=== PATIENT | male | born 1975 | race Caucasian/White ===

== ENCOUNTER 2018-04-11 07:27 | Outpatient (RCR) | payer OTHER, SELFPAY ==
--- NOTE | 2018-04-11 15:08 | HP.FCE ---
HP OT Functional Capacity Eval - Task Lift Floor (Occasional 1-33% of Day): 20 lbs Floor (Frequent 34-66% of Day): 10 lbs Floor (Constant 67-100% of Day): Negligible Floor PDL: Light Knee (Occasional 1-33% of Day): 20 lbs Knee (Frequent 34-66% of Day): 10 lbs Knee (Constant 67-100% of Day): Negligible Knee PDL: Light Waist (Occasional 1-33% of Day): 20 lbs Waist (Frequent 34-66% of Day): 10 lbs Waist (Constant 67-100% of Day): Negligible Waist PDL: Light Shoulder (Occasional 1-33% of Day): 20 lbs Shoulder (Frequent 34-66% of Day): 10 lbs Shoulder (Constant 67-100% of Day): Negligible Shoulder PDL: Light Overhead (Occasional 1-33% of Day): 20 lbs Overhead (Frequent 34-66% of Day): 10 lbs Overhead (Constant 67-100% of Day): Negligible Overhead PDL: Light - Work Activity/Posture Bending: Occasional Ability (1-33% of day) Squatting: Occasional Ability (1-33% of day) Kneeling: No Ablility (0% of day) Reaching out: Occasional Ability (1-33% of day) Reaching up: Occasional Ability (1-33% of day) Sitting: Frequent Ability (34-66% of day) Walking: Frequent Ability (34-66% of day) Comments: with breaks as needed Standing: Occasional Ability (1-33% of day) - Reference Duration Sedentary Sedentary Light Light Light Medium Medium Medium Heavy Very Heavy Heavy Occasional (0-33% of day) Frequent (34-66% of day) Constant (67-100% of day) 10 # Negligible Negligible 15 # 8 # Negligible 20 # 10# Negli. 35 # 18 # 7 # 50 # 25 # 10 # 75 # 100 # >100 # 38 # 50 # >50 # 15 # 20 # >20 # - Patient Information Height: 1.85 m Weight:: 247 kg Hand Dominance: L - Medical History Medical History Including Restrictions: No medical restrictions listed thought paperwork sent or by Pt. No weight reistrictions listed by mendoza tat this time. He has not yet completed work conditioning program. Paperwork noted he is already cleared to complete sedentary to light physical demand. - Diagnoses Diagnoses: PMHx: rotator cuff tear (2011 followed by surgery in 2013 and revision in 2017), L shoulder/arm sprain. R knee and leg sprain, TKR (2015), sprain of lumbar region of spine, R degenerative joint disease patellofemoral, biceps tendinopathy with sublux labrum, impingement syndrome of L shoulder, L L superior glenoid lesions , Upper back strain. Completed PT at [facility] PT service from 06/10/17-11/17/17. He missed 6 visits during that time and had been treated by 32 times by Shilpi Diaz PTA as well as MILADYS Izaguirre. PT reccommended further PT at that time. He noted he has not been able to get further therapy approved through . - Symptoms Symptoms: Pt. noted main symptoms is pain and decreased ROM. Notes when raising shoudle rover head feels increased pressure under scapular. - Pain Pain: DID not take daily pain medications prior to appointment for FCE. Pt. reports pain at rest at 8/10. Noted he is in pain all the time in L shoulder. Heart rate at rest 91 bpm and 02 98 %. Heart rate monitored t/o session. Post MMT and ROM 02 101, HR 113 BMP. Noted increased pain across upper back at thoracic spine. - Work History Work History: Adrien has not worked for the last 6 years. He notes that during that tinme he went to vocational rehab and then needed to have second shoulder surgery that occured April (2016). He still holds [employer] and notes that it is up to date at this time. He worked at [employer] since about 1993 holding jobs at various [employer]. - ADLS ADLS: Pt. lives in apartemnt but is currently also helping grandparents in [place] and then [facility] commuting back and forth. Lives in second floor apartment with 21 steps and handrail 1x side to get to second floor, FFSU once inside apartment. Able to complete ADls (I) and noted that shaving head is hard at times and girlfriend can help if needed. No pets, still driving,and completes most grocery shopping uses cane at times. - Physical Examination Physical Examination: Pt., Adrien, arrived for FCE on this date. With paper work provided it did not indicate that he had completed a work hardening program. Further PT would be beenfical as well as work hardening to promote increased fx of L UE. He noted pain consisently at 8/10 pain for all tasks. Further explaination of performance can be see above and below. He has increased pain with all movement of L UE. Based on performance he Light based physicla activity. Due to increased pain and at times mechanics changes it would not be benfical to complete lifitng taks at this time and could further increase risk of reinjruy. ROM: B UE. Shoulder. flexion: R 0-120 degrees, L 5-63 degrees could have potentially gone further but noted increased symptoms of pain through thoracic spine. ext: R 0-28, L -5-20 (30 degrees) some decreased from 40 degrees at last PT appointment. abduction: R 0-122, L 0-103. IR (elbow at 90): R 52, L 0-50 - completed elbow at 90 as increased symptoms of pain with movement. ER (elbow at 90): R 0-41, L 0-35 degrees. BLE is WFL, hip able to assume at least 100 degrees as able to sit in chair and lean forward as well as knees able to get to 90 degrees while sitting. Strength: Post MMT and ROM 02 101, HR nikki from 91 bpm to 113 BMP. This is believes to be from both exertion and some pain. BUE: Deltoid. biceps: triceps: EMoty can: Right Rv Body Mechanic Strength Average: 77.00 Left Rv Body Mechanic Strength Average: 36.00 Right Lateral Pinch Average: 18.66 Left Lateral Pinch Average: 6.00 Right Tripod Pinch Average: 14.33 Left Tripod Pinch Average: 7.00 Comments: Visble shaking on L UE when trying to complete dynamoeter. Appears to be putting good effort. Fine Motor: FMC intact. Completed 9 hole pegbaord to measure FMC and dexterity tasks. Completed R 25.40 s L 28.02 s. Noted movements increased sensation in back. Balance: Notes uses cane at times but no cane present for session and no deficits noted at this time. Notes doctor was supposed to provide brace but has not been provided support brace at this time. No brace on leg for session. - Non Material Handling Activities Bendinx, 8 with breaks due to LB pain, 10x. Fair body mechanics. Increased thoracic flexion, hyperext of B knees. Increased breaks needed during second set with pain in low back. Mechanical changes noted but no change after starting task. HR 113 bpm Squattinx, 10x, shoulder breaks and increased SOB 10x. 02 98, HR 127 BPM; Increase in HR from 113 to 127 this is indicative of both what appears to be increased exertion and related to some pain. Poor body mechanics. Narrow FAYE, increased trunk flexion to promote upright posture, and pain 8/. Completed Kneeling: Pt. attempted but refused due to shoot of pain through knee and into back per Pt. report. Reaching out/up: Reaching otu from standing position: 3x, 10x, 10 x faster need for quick break after 2 reaches on last round of 10 reps. tasks at abou t 80 degrees shoulder flexion rating more accurate at ___/10. Pt. reports 8/10. Appears to have some desprepancies as he is able to completed. 02 98, HR 122 bpm. Reaching up from standing position: Short standing break prior to continuing. 3x, 10x, short break 8/ pain per Pt. report, shoulder flexion about 100 on L UE during task. O2 98, HR 97 bpm Walkin misn short less 30 second standing break at 6 mins. 6 laps in 6 mins plus 55 feet. HR 98. End of walking 96 02, 108 bpm Standin mins with short breaks and moving t/o session. Sittin-45 mins. Could have sat longer. Climbing Stairs: 10 stairs L foot up, R down - Dynamic Occasional Lifting Capacity Floor Lift: 20. 8/10 percieved pain Knee Lift: 20. 8/10 percieved pain Waist Lift: 20. 8/10 percieved pain. 02 78, HR 144 bpm Shoulder Lift: 20 Overhead Lift: 20 lbs. Slight supercharger mechanic chnages of holding breath, compensations,. 02 95 HR 96 Carrying: O2 94, HR 112 bpm. Mechanical changes noted. stright arms, SOB, holding shoulder. Comments: Adrien completed The Oswestry Disability Index (Back) reporting 2250= 44% disability, The Oswestry Disability (Neck) 27/50= 54%, DASH 82. 8/10 percieved pain
--- NOTE | 2018-04-11 15:09 | HP.OTFCE.D ---
FCE D/C Summary - Discharge ES ANDREA was seen for a one time visit for an FCE on 04/11/18 and is discharged.
--- NOTE | 2018-04-13 13:24 | HP.FCE ---
HP OT Functional Capacity Eval - Task Lift Floor (Occasional 1-33% of Day): 20 lbs Floor (Frequent 34-66% of Day): 10 lbs Floor (Constant 67-100% of Day): Negligible Floor PDL: Light Knee (Occasional 1-33% of Day): 20 lbs Knee (Frequent 34-66% of Day): 10 lbs Knee (Constant 67-100% of Day): Negligible Knee PDL: Light Waist (Occasional 1-33% of Day): 20 lbs Waist (Frequent 34-66% of Day): 10 lbs Waist (Constant 67-100% of Day): Negligible Waist PDL: Light Shoulder (Occasional 1-33% of Day): 20 lbs Shoulder (Frequent 34-66% of Day): 10 lbs Shoulder (Constant 67-100% of Day): Negligible Shoulder PDL: Light Overhead (Occasional 1-33% of Day): 20 lbs Overhead (Frequent 34-66% of Day): 10 lbs Overhead (Constant 67-100% of Day): Negligible Overhead PDL: Light Comments: Mechanical changes noted with all lifting tasks. Due to these mechanical changes these tasks were stopped when appropriate and should be avoid at this time until further follow up, strength, and endurance is built up in LUE. Pt. and record he provided indicated last PT visit was 11/17/17. Further PT is needed to increased ability to fx use L UE. And then the potential of work hardening and then vocational rehab if needed. - Work Activity/Posture Bending: Occasional Ability (1-33% of day) Comments: 1-10% Squatting: Occasional Ability (1-33% of day) Comments: 1-10% Kneeling: No Ablility (0% of day) Comments: unable due to safety concerns per Pt. report. Reaching out: Occasional Ability (1-33% of day) Comments: 1-15% Reaching up: Occasional Ability (1-33% of day) Comments: 1-10% Sitting: Frequent Ability (34-66% of day) Walking: Occasional Ability (1-33% of day) Comments: with breaks as needed Standing: Occasional Ability (1-33% of day) Comments: 1-15% - Reference Duration Sedentary Sedentary Light Light Light Medium Medium Medium Heavy Very Heavy Heavy Occasional (0-33% of day) Frequent (34-66% of day) Constant (67-100% of day) 10 # Negligible Negligible 15 # 8 # Negligible 20 # 10# Negli. 35 # 18 # 7 # 50 # 25 # 10 # 75 # 100 # >100 # 38 # 50 # >50 # 15 # 20 # >20 # - Patient Information Height: 1.85 m Weight:: 247 kg Hand Dominance: L - Medical History Medical History Including Restrictions: No medical restrictions listed though paperwork sent with C9 or brought by Pt. No weight reistrictions noted by client at this time. He has not yet completed work conditioning program. Paperwork indicated he is already cleared to complete sedentary to light physical demand activities. Edcuated to completed all tasks as tolerated but to give best effort. - Diagnoses Diagnoses: PMHx: rotator cuff tear (2011 followed by surgery in 2012 and revision in 2016), L shoulder/arm sprain. R knee and leg sprain, TKR (2014), sprain of lumbar region of spine, R degenerative joint disease patellofemoral, biceps tendinopathy with sublux labrum, impingement syndrome of L shoulder, L superior glenoid lesions , Upper back strain. Completed PT at [facility] PT service from 06/10/17-11/17/17. He missed 6 visits during that time and had been treated for a total of 32 times by Shilpi Diaz PTA as well as Cecil Faith LPT. PT recommended further POC at that time. he report he has not recieve approval for C9 for continue PTand has no further treatment. - Symptoms Symptoms: Pt. noted main symptoms are pain, decreased strength, and decreased ROM. Notes when raising shoulder overhead feels increased pressure under scapular. - Pain Pain: DID not take daily pain medications prior to appointment for FCE. Reports taking pain related medications daily to manage shoulder related pain. Pt. reports pain at rest at 8/10. He is able to move R UE against gravity and pain appears to start at 110 degrees shoulder flexion. There is no indication of grimance or wincing while sitting in chair so there maybe some despcrepancies with seated pain. He did use compensatory as well as protective techniques when adjusting self in chair. Noted he is in pain all the time in L shoulder. Heart rate at rest 91 bpm and 02 at 98 %. Heart rate monitored t/o session to determine pain as well as exertion. Post MMT and ROM 02 101, HR 113 BMP. Noted increased pain across upper back at thoracic spine. HR appears to adequetly inidcate increased in pain symtpoms as increased grimances noted t/o various movements to test ROM. - Work History Work History: Adrien has not worked for the last 6 years. He notes that during that time he went to vocational rehab and then needed to have second shoulder surgery that occurred April (2016). He did not return for work hardening post completion of PT or vocational rehab post 2017 surgery. 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 - Behavioral Behavioral: Adrien did not show a lot of emotion but grimace and increased SOB with exertion as well as increased techniques that caused pain were noted t/o session. - ADLS ADLS: Pt. lives in apartment but is currently also helping grandparents in [place] and staying long weekend with grandparents and commuting back and forth while on weekends on apartment. Lives in second floor apartment with 21 steps and handrail 1x side to get to second floor, FFSU once inside apartment. Able to complete ADls (I) and noted that shaving head is hard at times and girlfriend can help if needed. No pets, still driving, and completes most grocery shopping with use cane at times. - Physical Examination Physical Examination: Pt., Adrien, arrived for E on this date. Paperwork provided it did not indicate that he had completed a work hardening program but did indicate one was recommended. Further PT would be beneficial as well as work hardening to promote increased fx of L UE. He noted pain consistently at 8/10 pain for all tasks. Some discrepancies with pain rating at 8/10 while in chair but HR noted t/o physical activities appeared to be consistent with increased pain as well as nonverbals and mechanical changes noted. Further explanation of performance can be see above and below. He has increased pain with all movement of L UE. Based on performance he has been placed in Light based physical activity. Due to increased pain and at times mechanical changes it would not be beneficial to complete lifting tasks or consistent repetitive movement tasks at this time as he is risk of reinjury. It is at this time further PT and work hardening at the completion of PT is recommended. Crepitus is noted with movements of LUE but is likely due to lack of use of L UE. ROM: B UE. Shoulder. flexion: R 0-120 degrees, L 5-63 degrees could have potentially gone further but noted increased symptoms of pain through thoracic spine. ext: R 0-28, L -5-20 (30 degrees) some decreased from 40 degrees at last PT appointment. abduction: R 0-122, L 0-103. IR (elbow at 90): R 52, L 0-50 - completed elbow at 90 as increased symptoms of pain with movement. ER (elbow at 90): R 0-41, L 0-35 degrees. BLE is WFL, hip able to assume at least 100 degrees as able to sit in chair and lean forward as well as knees able to get to 90 degrees while sitting. Strength: Post MMT and ROM 02 101, HR nikki from 91 bpm to 113 BMP. This is believes to be from both exertion and pain as facial grimances noted during tasks. BUE: Deltoid: R 3+/5, L 3+/5 consistently breaks muscle tension but can sustain in againts gravity plane. biceps: R 4-/ 5, L 3+/5. triceps: R 4-/ 5, L 3+/5. suprapinatus: R 4-/ 5, L 3+/5- very painful on L side per Pt. report. wrist flexion and extension: R 4+/5, L 4+/5. BLE. Hip flexors: R 4/5, L 4/5. hamstring: R 4/5, L 4/5. quadracep: R 4/5, L 4/5. plantar flexion: R 4/5, L 4/5. dorsiflexion: R 4/5, L 4/5 Right Expediter Service Order Strength Average: 77.00 Right Expediter Service Order Strength Percentile: 133 Left Expediter Service Order Strength Average: 36.00 Left Expediter Service Order Strength Percentile: 109 Right Lateral Pinch Average: 18.66 Right Lateral Pinch Percentile: 25 Left Lateral Pinch Average: 6.00 Left Lateral Pinch Percentile: below 10th Right Tripod Pinch Average: 14.33 Right Tripod Pinch Percentile: below 10th Left Tripod Pinch Average: 7.00 Left Tripod Pinch Percentile: below 10th Comments: Visible shaking on L UE when trying to complete dynaometer. Appeared to be putting good effort. Sensation: Completed sensation testing through monofilament test. Sensation inact and WFL. Notes increased sensation through shoulder area. Fine Motor: FMC intact. Completed 9 hole pegbaord to measure FMC and dexterity tasks. Completed R 25.40 s (10th) L 28.02 s (10th). Noted movements caused increased sensation in back. Balance: Notes uses cane at times but no cane present for session and no deficits noted with balance during session. Mechanical compensations noted of increased trunk flexion and walking stright knees t/o walking task. Notes doctor was supposed to provide brace for R knee but has not been provided support brace. No brace on leg for session. Completed functional reach test with L arm against wall for AAROM he averaged 9 point score over three trials. Due to score under 10 this indicates greater fall risk. - Non Material Handling Activities Bendinx, 8 with breaks due to LB pain, 10x. Fair body mechanics. Increased thoracic flexion, hypertext of B knees. Increased breaks needed during second set with pain in low back. Mechanical changes noted but no change after starting task. HR nikki from 91 bpm at rest to HR 113 bpm. This is believed to be both due to exertion and pain. No recommended to be completing consistently as increased pain and mechanical changes in body mechanics. Squattinx, 10x, needed standing breaks and increased SOB noted, 10x. 02 98, HR 127 BPM; Increase in HR from 113 to 127 this is indicative of both what appears to be increased exertion and related to some pain. mechanical changes noted and poor body mechanics of narrow FAYE, use of external support of desk, and increased lateral leaning to L side to prevent increased pressure of R LE. Would not recommend completing consistently at this time. Further rehab and then work hardening program would be recommended. Poor body mechanics. Narrow FAYE, increased trunk flexion to promote upright posture, and pain /10. Kneeling: Pt. attempted but refused due to shoot of pain through knee and into back per Pt. report. Visible mechanical changes and inability to assume position. Not recommended to be completing at this time. Reaching out/up: Reaching out from standing position: 3x, 10x, 10 x faster need for quick break after 2 reaches on last round of 10 reps. tasks at about 80 degrees shoulder flexion rating more accurate at 6/10 based on ability to complete task but inability to complete without very limiting pain. Pt. reports 8/10. Would not recommend completing until further rehab is provided. 02 98, HR 122 bpm. Reaching up from standing position: Short standing break prior to continuing. 3x, 10x, short break 8/10 pain per Pt. report, shoulder flexion about 100 on L UE during task. O2 98, HR 97 bpm. Heartrate manageable compared to previous task. Unable to assume same positioning of L arm. Some increased facial expressions noted. Minimal mechanical changes. Needs further rehab before completing regularly for job-based purposes at this time. Walking: Completed 15 mins walk around facility. One less than 30 second standing break at 6 mins. Completed 6 laps in 15 mins. Each lap 340 feet completing approximately 2,040 feet total in walk with additional walking to get to and from main gym. At start HR 98; End of walking 96 02, 108 bpm. Increased heart rate is believed to be both exertion as well as pain and antalgic gait noted at about lap4 of task. Would not be appropriate to return to job requiring repetitive walking tasks. Standing: Pt. completed 30 mins of standing both dynamic and static with short breaks and moving t/o session. Needed to make compensations as needed. Due to h/o of TKR and reports of buckling would not recommended consistent standing at this time due to risk of injury and safety concerns. Sitting: Completed 40-45 mins. Could have sat longer .Lateral leaning to R side. Weight shifts as needed to manage pain. . Climbing Stairs: Completed climbing of 10 stairs L foot up, R down and use of 1x handrail. 1x Lob with decent with ability to self-correct and support of handrail. Climbs 21 steps to apartment, no elevator in building. - Dynamic Occasional Lifting Capacity Floor Lift: 20 lbs. Completed floor lift with poor body mechanics. Pt. perceived 8/10 pain, consistent t/o session. Completed narrow FAYE, flexed thoracic flexion, cervical extension, and lifting with straight arms with cues to bend elbows. Performance classifies in light category of work. Due to mechanical changes and mechanics would no recommend completing lifting related tasks at this time. Further PT recommended and then further work hardening program recommended. Knee Lift: 20 lbs. Completed knee lift with poor body mechanics. Pt. perceived 8/10 pain, consistent t/o session. Completed narrow FAYE, flexed thoracic flexion, cervical extension, and lifting with straight arms with cues to bend elbows. Completed floor lift with poor body mechanics. Pt. perceived 8/10 pain, consistent t/o session. Completed narrow FAYE, flexed thoracic flexion, cervical extension, and lifting with straight arms with cues to bend elbows. Waist Lift: 20 lbs. Completed waist lift with decreased body mechanics. Increased grimace noted and SOB. Perceived pain at 8/. Completed 02 78, HR 144 bpm. Increased HR indicated increased exertion as well as pain. Performance classifies in light category of work. Due to mechanical changes and mechanics would no recommend completing lifting related tasks at this time. Further PT recommended and then further work hardening program recommended. Shoulder Lift: 20 lbs. Increased compensations noted. Fair body mechanics of increased thoracic extension and cervical flexion. Conpensated with primarily using R UE over B Ue. Not reccommended completing at this time due to safety concerns and further risk of reinjury. Further PT reccommended. Overhead Lift: 20 lbs. Mechanical changes of holding breath, compensations, perceived pain at 04/07. 02 95 HR 96. Pain appears tolerated. Performance classifies in light category of work. Due to mechanical changes and mechanics would no recommend completing lifting related tasks at this time. Further PT recommended and then further work hardening program recommended. He appears to be able to tolerate overhead lifting better than forward based tasks. Make be indicative of further impingement type of syndrome. Multiple surgeries noted by patient. Therapist unable to see post-operative reports. Further PT needed to promote pain management and increased fx use of L UE. Carryin lbs. Significant mechanical. Unsafe to complete task. Poor body mechanics of straight arm, elevated shoulders, one handed technique use of primary R UE, and increased ROM. O2 94, HR 112 bpm. Would not recommend completing performance at light work as unsafe and increased compensations noted. Comments: Adrien completed The Oswestry Disability Index (Back) reporting 22/50= 44% disability, The Oswestry Disability (Neck) 27/50= 54%, DASH score of 82. Perceived pain t/o session at 810. Due to ability to complete tasks, but limiting pain noted, it would be more feasible pain at 6-03/07. Adrien would benefit from further PT and potentially work hardening program with the potential of follow up of vocational rehab as previously sounds like Adrien was unable to complete vocational rehab program as per Pt. report and needing additional surgery.
--- NOTE | 2018-04-20 15:16 | HP.OTFCE_ITS ---
HP OT Functional Capacity Eval - Task Lift Floor (Occasional 1-33% of Day): 20 lbs Floor (Frequent 34-66% of Day): 10 lbs Floor (Constant 67-100% of Day): Negligible Floor PDL: Light Knee (Occasional 1-33% of Day): 20 lbs Knee (Frequent 34-66% of Day): 10 lbs Knee (Constant 67-100% of Day): Negligible Knee PDL: Light Waist (Occasional 1-33% of Day): 20 lbs Waist (Frequent 34-66% of Day): 10 lbs Waist (Constant 67-100% of Day): Negligible Waist PDL: Light Shoulder (Occasional 1-33% of Day): 20 lbs Shoulder (Frequent 34-66% of Day): 10 lbs Shoulder (Constant 67-100% of Day): Negligible Shoulder PDL: Light Overhead (Occasional 1-33% of Day): 20 lbs Overhead (Frequent 34-66% of Day): 10 lbs Overhead (Constant 67-100% of Day): Negligible Overhead PDL: Light Comments: Mechanical changes noted with all lifting tasks. Due to these mechanical changes these tasks were stopped if/when appropriate and should be avoided at this time until further follow up, strength, and endurance is built up in LUE. Pt. and record he provided indicated last PT visit was 11/17/17. Further PT is needed to increase ability to fx use L UE. And then the potential of work hardening and then vocational rehab if needed. Please see below for further performance on FCE. - Work Activity/Posture Bending: Occasional Ability (1-33% of day) Comments: 1-10% Squatting: Occasional Ability (1-33% of day) Comments: 1-10% Kneeling: No Ablility (0% of day) Comments: unable due to safety concerns per Pt. report. Reaching out: Occasional Ability (1-33% of day) Comments: 1-15% Reaching up: Occasional Ability (1-33% of day) Comments: 1-10% Sitting: Frequent Ability (34-66% of day) Walking: Occasional Ability (1-33% of day) Comments: with breaks as needed Standing: Occasional Ability (1-33% of day) Comments: 1-15% - Reference Duration Sedentary Sedentary Light Light Light Medium Medium Medium Heavy Very Heavy Heavy Occasional (0-33% of day) Frequent (34-66% of day) Constant (67-100% of day) 10 # Negligible Negligible 15 # 8 # Negligible 20 # 10# Negli. 35 # 18 # 7 # 50 # 25 # 10 # 75 # 100 # >100 # 38 # 50 # >50 # 15 # 20 # >20 # - Patient Information Height: 1.85 m Weight:: 247 kg Hand Dominance: L - Medical History Medical History Including Restrictions: No medical restrictions listed though paperwork sent with C9 or brought by Pt. No weight restrictions listed by client at this time. He has not yet completed work conditioning program. Paperwork indicated he is already cleared to complete sedentary to light physical demand. - Diagnoses Diagnoses: PMHx: rotator cuff tear (2011 followed by surgery in 2012 and revision in 2016), L shoulder/arm sprain. R knee and leg sprain, TKR (2014), L ATC tear, sprain of lumbar region of spine, R degenerative joint disease patellofemoral, biceps tendinopathy with sublux labrum, impingement syndrome of L shoulder, L superior glenoid lesions, Upper back strain. Completed PT at [facility] PT service from 06/10/17-11/17/17. He missed 6 visits during that time and had been treated for a total of 32 times by Shilpi Diaz PTA as well as Cecil Faith LPT. PT recommended further POC at that time. He reports he has not received approval for for continue PT and has no further treatment. - Symptoms Symptoms: Pt. noted main symptoms are pain, decreased strength, and decreased ROM. Notes when raising shoulder overhead feels increased pressure under scapular. - Pain Pain: DID not take daily pain medications prior to appointment for FCE. Reports taking pain related medications daily to manage shoulder related pain. Pt. reports pain at rest at 8/10. He is able to move R UE against gravity and pain appears to start at 110 degrees shoulder flexion. There is no indication of grimace or wincing while sitting in chair so there may be some discrepancies with seated pain. He did use compensatory as well as protective techniques when adjusting self in chair. Noted he is in pain all the time in L shoulder. Heart rate at rest 91 bpm and 02 at 98 %. Heart rate monitored t/o session to determine pain as well as exertion. Post MMT and ROM 02 101, HR 113 BMP. Noted increased pain across upper back at thoracic spine. HR appears to adequately indicate increased in pain symptoms as increased grimaces noted t/o various movements to test ROM. - Work History Work History: Adrien has not worked for the last 6 years. He notes that during that time he went to vocational rehab and then needed to have second shoulder surgery that occurred April (2016). 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 - Behavioral Behavioral: Adrien did not show a lot of emotion but grimaces at times and increased SOB were noted with increased exertion. Tasks that caused increased pain were noted t/o session and discontinued when appropriate or safety was concerned. - ADLS ADLS: Pt. lives in apartment but is currently also helping grandparents in [place] and staying long weekend with grandparents and commuting back and forth while on weekends on apartment. Lives in second floor apartment with 21 steps and handrail 1x side to get to second floor, FFSU once inside apartment. Able to complete ADls (I) and noted that shaving head is hard at times and girlfriend can help if needed. No pets, still driving, and completes most grocery shopping with use cane at times. As per E questionnaire he does exercises regularly, cannot complete yardwork or sit through movie, but can walk steps, complete laundry, grocery shop and completed all ADLS. - Physical Examination Physical Examination: Pt., Adrien, arrived for [facility] on this date. Paperwork provided did not indicate that he had completed a work hardening program but did indicate one was recommended. Pt. noted was in vocational rehab and then needed to stop due to needing second surgery. Further PT would be beneficial as well as work hardening to promote increased fx of L UE. He noted pain consistently at 8/10 pain for all tasks. Some discrepancies with pain rating at 8/10 while in chair but HR monitored t/o physical activities appeared to be consistent with increased pain as well as exertion but nonverbals and mechanical changes noted. Further explanation of performance can be see above and below. He has increased pain with all movement of L UE. Based on performance he has been placed in Light based physical activity. Due to increased pain and at times mechanical changes it would not be beneficial to complete lifting tasks or consistent repetitive movement tasks at this time as he is risk of reinjury. It is at this time further PT and work hardening at the completion of PT is recommended. Crepitus is noted with movements of LUE but is likely due to lack of use of L UE. ROM: B UE. Shoulder. flexion: R 0-120 degrees, L 5-63 degrees could have potentially gone further but noted increased symptoms of pain through thoracic spine. - increased signs of impingement of R shoulder. Can be treated through continued PT. ext: R 0-28, L -5-20 (30 degrees) some decreased from 40 degrees at last PT appointment. abduction: R 0-122, L 0-103. IR (elbow at 90): R 52, L 0-50 - completed elbow at 90 as increased symptoms of pain with movement. ER (elbow at 90): R 0-41, L 0-35 degrees. BLE is WFL, hip able to assume at least 100 degrees as able to sit in chair and lean forward as well as knees able to get to 90 degrees while sitting. Strength: Post MMT and ROM 02 101, HR nikki from 91 bpm to 113 BMP. This is believed to be from both exertion and pain as facial grimaces noted during tasks. BUE: Deltoid: R 3+/5, L 3+/5 consistently breaks muscle tension but can sustain position in against gravity plane. biceps: R 4-/ 5, L 3+/5. triceps: R 4-/ 5, L 3+/5. supraspinatus: R 4-/ 5, L 3+/5- very painful on L side per Pt. report. wrist flexion and extension: R 4+/5, L 4+/5. BLE. Hip flexors: R 4/5, L 4/5. hamstring: R 4/5, L 4/5. quadricep: R 4/5, L 4/5. plantar flexion: R 4/5, L 4/5. dorsiflexion: R 4/5, L 4/5 Right Cloth Printing Utility Worker Strength Average: 77.00 Right Cloth Printing Utility Worker Strength Percentile: 133 Left Cloth Printing Utility Worker Strength Average: 36.00 Left Cloth Printing Utility Worker Strength Percentile: 109 Right Lateral Pinch Average: 18.66 Right Lateral Pinch Percentile: 25 Left Lateral Pinch Average: 6.00 Left Lateral Pinch Percentile: below 10th Right Tripod Pinch Average: 14.33 Right Tripod Pinch Percentile: below 10th Left Tripod Pinch Average: 7.00 Left Tripod Pinch Percentile: below 10th Comments: Visible shaking on L UE when trying to complete dynamometer. Appeared to be putting good effort. Sensation: Completed sensation testing through monofilament test. Sensation intact and WFL. Notes increased sensation through shoulder area. Fine Motor: FMC intact. Completed 9 hole pegboard to measure FMC and dexterity tasks. Completed R 25.40 s (10th) L 28.02 s (10th). Noted movements caused increased sensation in back. Balance: Notes uses cane at times but no cane present for session. Mechanical compensations noted of increased trunk flexion and walking straight knees t/o walking task. Notes doctor was supposed to provide brace for R knee but has not been provided support brace. No brace on leg for session. Completed functional reach test with L arm against wall for AAROM he averaged 9-point score over three trials. Due to score under 10 this indicates greater fall risk. Completed fx reach as due to pain in LUE he exhibits increased risk of falling when reaching. Further balance testing maybe beneficial but was not able to be completed during session due to time constraints. - Non Material Handling Activities Bendinx, 8 with breaks due to LB pain, 10x. Fair body mechanics. Increased thoracic flexion, hyperext of B knees due to no bending of knee with movement and increased compensations. Increased breaks needed during second set with pain in low back. Mechanical changes noted but no change after starting task. HR nikki from 91 bpm at rest to HR 113 bpm, vitals WFL due to increased activity level compared to sitting. Not recommended to be completing consistently as increased pain and mechanical changes in body mechanics. Squattinx, 10x, needed standing breaks and increased SOB noted, 10x. 02 98 , HR 127 BPM; Increase in HR from 113 to 127 this is indicative of both what appears to be increased exertion as well as related to pain. mechanical changes noted and poor body mechanics of narrow FAYE, use of external support of desk, and increased lateral leaning to L side to prevent increased pressure of R LE. Would not recommend completing consistently at this time. Further rehab and then work hardening program would be recommended. Pain rated at 8/10, but able to complete movement which pain more likely 6-7/10. Pain still significant but likely at 8/10 would not be able to complete movement at all. Kneeling: Pt. attempted but refused due to shoot of pain through knee and into back per Pt. report. Visible mechanical changes and inability to assume position. Not reccommended to be completing at this time. Pain rated at 8+/10 and pain rating appears to accurate at this time. Reaching out/up: Reaching out from standing position: 3x, 10x, 10 x faster need for quick break after 2 reaches on last round of 10 reps. Tasks for reaching out at about 80 degrees shoulder flexion rating more accurate at 6-7/ 10 based on ability to complete task, not in full ROM, but inability to complete without very limiting pain. Pt. reports 8/10. Would not recommend completing until further rehab is provided. Vitals: 02 98, HR 122 bpm. Increased HR appears to indicate pain. Reaching up from standing position: Short standing break prior to continuing. 3x, 10x, short break 8/10 pain per Pt. report, shoulder flexion about 100 on L UE during task. O2 98, HR 97 bpm. Heartrate manageable compared to previous task. Appears impingement syndrome of L shoulder is still limiting movements of L Ue. Unable to assume same positioning of L arm. Some increased facial expressions noted. Minimal mechanical changes. Needs further rehab before completing regularly for job- based purposes at this time. Walking: Completed 15 mins walk around facility. Required 1x less than 30 second standing break at 6 mins garth. Completed 6 laps in 15 mins. Each lap 340 feet completing approximately 2,040 feet total in walk with additional walking to get to and from main gym area. No cane, no a/d used. At start of walk vitals were HR 98, End of walk vitals were: 02 96, 108 bpm. Increased heartrate is believed to be both exertion as well as pain as antalgic gait noted at about lap 4 of task. Would not be appropriate to return to job requiring repetitive walking tasks but is able to complete short walks with breaks. Standing: Pt. completed 30 mins of standing both dynamic and static with short breaks and moving t/o session. Needed to make compensations as needed. Due to h/ o of TKR and reports of buckling would not recommend consistent standing at this time due to risk of reinjury and safety concerns. He tolerated standing with compensations of weight shift as needed. Sitting: Completed 40-45 mins. Could have sat longer. Lateral leaning to R side. Weight shifts as needed to manage pain. Climbing Stairs: Completed climbing of 10 stairs L foot up, R down and use of 1x handrail. 1x LOb with decent with ability to self correct and support of handrail. Climbs 21 steps to apartment, no elevator in building.WFL, noted R knee does bukle but did not buckle during today's evaluation. - Dynamic Occasional Lifting Capacity Floor Lift: 20 lbs. Completed floor lift with poor body mechanics. Pt. perceived 8/10 pain, consistent t/o session. Completed narrow FAYE, flexed thoracic flexion, cervical extension, and lifting with straight arms with cues to bend elbows. Performance classifies in light category of work. Due to mechanical changes and mechanics would no recommend completing lifting related tasks at this time. Further PT recommended and then further work hardening program recommended. Knee Lift: 20 lbs. Completed knee lift with poor body mechanics. Completed narrow FAYE, flexed thoracic flexion, cervical extension, and lifting with straight arms with cues to bend elbows. Completed floor lift with poor body mechanics. Pt. perceived 8/10 pain, consistent t/o session, but able to complete task with more accurate rating being 6-7/10. Completed narrow FAYE, flexed thoracic flexion, cervical extension, and lifting with straight arms with cues to bend elbows. Performance classifies in light category of work. Due to mechanical changes and mechanics would not recommend completing lifting related tasks at this time. Further PT recommended and then further work hardening program recommended. Waist Lift: 20 lbs. Completed waist lift with decreased body mechanics. Increased grimace noted and SOB. Perceived pain at 8/10. Completed 02 78, HR 144 bpm. Increased HR indicated increased exertion as well as pain. Performance classifies in light category of work. Due to mechanical changes and poor body mechanics would not recommend completing lifting related tasks at this time. Further PT recommended and then further work hardening program would be beneficial. Shoulder Lift: 20 lbs. Completed with fair body mechanics. Completed increased thoracic extension cervical flexion with decreased spinal alignment. Increased mechanical changes noted as well as SOB and grimace noted. Pain per Pt. rating at 810. Performance classifies in light category of work. Due to mechanical changes and mechanics would not recommend completing lifting related tasks at this time. Further PT recommended and then further work hardening program recommended. Overhead Lift: 20 lbs. Mechanical changes of holding breath, compensations of decreased spinal alignment, and perceived pain at 8. 02 95 HR 96. Pain appears tolerable during task or would have been discontinued. Performance classifies in light category of work. Due to mechanical changes and mechanics would no recommend completing lifting related tasks at this time. Further PT recommended and then further work hardening program recommended. He appears to be able to tolerate overhead lifting better than forward based tasks. May be indicative of further impingement type of syndrome. Multiple surgeries noted by patient. Therapist unable to see post-operative reports. Further PT needed to promote pain management and increased fx use of L UE. With further therapy he is likely to have increased fx of arm. Impingement syndrome is manageable through conservative treatment. Carryin lbs. Significant mechanical changes. Unsafe to complete task. Poor body mechanics of straight arm, elevated shoulders, one handed technique of primarily using R UE only, and increased ROM. O2 94, HR 112 bpm. Would not recommend completing performance at light work as unsafe and increased compensations noted. 20 lbs. Further Pt needed to help manage impingement/ shoulder pain. It is believed that due to extensive history of shoulder related injury and surgeries he would need continue PT and eventually work hardening. No job description provided. Unclear of weight related lifting requirements. Comments: Adrien completed The Oswestry Disability Index (Back) reporting 22/50= 44% disability, The Oswestry Disability (Neck) 27/50= 54%, DASH score of 82. Perceived pain t/o session at 04/07. Due to ability to complete tasks, but limiting pain noted, it would be more feasible pain at 6-03/07. This is still significant pain and needs addressed with further PT and potentially work hardening program with the potential of follow up of vocational rehab as previously Pt. noted he partially complete as he needed additional surgery. 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 Further clarification of CDL status as well as [id number] requirement for job would be needed. 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
--- NOTE | 2018-04-24 15:51 | HP.FCE ---
HP OT Functional Capacity Eval - Task Lift Floor (Occasional 1-33% of Day): 20 lbs Floor (Frequent 34-66% of Day): 10 lbs Floor (Constant 67-100% of Day): Negligible Floor PDL: Light Knee (Occasional 1-33% of Day): 20 lbs Knee (Frequent 34-66% of Day): 10 lbs Knee (Constant 67-100% of Day): Negligible Knee PDL: Light Waist (Occasional 1-33% of Day): 20 lbs Waist (Frequent 34-66% of Day): 10 lbs Waist (Constant 67-100% of Day): Negligible Waist PDL: Light Shoulder (Occasional 1-33% of Day): 20 lbs Shoulder (Frequent 34-66% of Day): 10 lbs Shoulder (Constant 67-100% of Day): Negligible Shoulder PDL: Light Overhead (Occasional 1-33% of Day): 20 lbs Overhead (Frequent 34-66% of Day): 10 lbs Overhead (Constant 67-100% of Day): Negligible Overhead PDL: Light Comments: Mechanical changes noted with all lifting tasks. Due to these mechanical changes these tasks were stopped if/when appropriate and should be avoided at this time until further follow up, strength, and endurance is built up in LUE. Pt. and record he provided indicated last PT visit was 11/17/17. Further PT is needed to increase ability to fx use L UE. And then the potential of work hardening and then vocational rehab if needed. Please see below for further performance on FCE. - Work Activity/Posture Bending: Occasional Ability (1-33% of day) Comments: 1-10% Squatting: Occasional Ability (1-33% of day) Comments: 1-10% Kneeling: No Ablility (0% of day) Comments: unable due to safety concerns per Pt. report. Reaching out: Occasional Ability (1-33% of day) Comments: 1-15% Reaching up: Occasional Ability (1-33% of day) Comments: 1-10% Sitting: Frequent Ability (34-66% of day) Walking: Occasional Ability (1-33% of day) Comments: with breaks as needed Standing: Occasional Ability (1-33% of day) Comments: 1-15% - Reference Duration Sedentary Sedentary Light Light Light Medium Medium Medium Heavy Very Heavy Heavy Occasional (0-33% of day) Frequent (34-66% of day) Constant (67-100% of day) 10 # Negligible Negligible 15 # 8 # Negligible 20 # 10# Negli. 35 # 18 # 7 # 50 # 25 # 10 # 75 # 100 # >100 # 38 # 50 # >50 # 15 # 20 # >20 # - Patient Information Height: 1.85 m Weight:: 247 kg Hand Dominance: L - Medical History Medical History Including Restrictions: No medical restrictions listed though paperwork sent with C9 or brought by Pt. No weight restrictions listed by client at this time. He has not yet completed work conditioning program. Paperwork indicated he is already cleared to complete sedentary to light physical demand. - Diagnoses Diagnoses: PMHx: rotator cuff tear (2011 followed by surgery in 2012 and revision in 2016), L shoulder/arm sprain. R knee and leg sprain, TKR (2014), L ATC tear, sprain of lumbar region of spine, R degenerative joint disease patellofemoral, biceps tendinopathy with sublux labrum, impingement syndrome of L shoulder, L superior glenoid lesions, Upper back strain. Completed PT at [facility] PT service from 06/10/17-11/17/17. He missed 6 visits during that time and had been treated for a total of 32 times by Shilpi Diaz PTA as well as Cecil Faith LPT. PT recommended further POC at that time. He reports he has not received approval for for continue PT and has no further treatment. - Symptoms Symptoms: Pt. noted main symptoms are pain, decreased strength, and decreased ROM. Notes when raising shoulder overhead feels increased pressure under scapular. - Pain Pain: DID not take daily pain medications prior to appointment for FCE. Reports taking pain related medications daily to manage shoulder related pain. Pt. reports pain at rest at 8/10. He is able to move R UE against gravity and pain appears to start at 110 degrees shoulder flexion. There is no indication of grimace or wincing while sitting in chair so there may be some discrepancies with seated pain. He did use compensatory as well as protective techniques when adjusting self in chair. Noted he is in pain all the time in L shoulder. Heart rate at rest 91 bpm and 02 at 98 %. Heart rate monitored t/o session to determine pain as well as exertion. Post MMT and ROM 02 101, HR 113 BMP. Noted increased pain across upper back at thoracic spine. HR appears to adequately indicate increased in pain symptoms as increased grimaces noted t/o various movements to test ROM. - Work History Work History: Adrien has not worked for the last 6 years. He notes that during that time he went to vocational rehab and then needed to have second shoulder surgery that occurred April (2016). 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 - Behavioral Behavioral: Adrien did not show a lot of emotion but grimaces at times and increased SOB were noted with increased exertion. Tasks that caused increased pain were noted t/o session and discontinued when appropriate or safety was concerned. - ADLS ADLS: Pt. lives in apartment but is currently also helping grandparents in [place] and staying long weekend with grandparents and commuting back and forth while on weekends on apartment. Lives in second floor apartment with 21 steps and handrail 1x side to get to second floor, FFSU once inside apartment. Able to complete ADls (I) and noted that shaving head is hard at times and girlfriend can help if needed. No pets, still driving, and completes most grocery shopping with use cane at times. As per E questionnaire he does exercises regularly, cannot complete yardwork or sit through movie, but can walk steps, complete laundry, grocery shop and completed all ADLS. - Physical Examination Physical Examination: Pt., Adrien, arrived for E on this date, 04/11/18. Paperwork provided did not indicate that he had completed a work hardening program but did indicate one was recommended. he has not worked for about last 6 years per Pt. report. Pt. noted he was in vocational rehab and then needed to stop due to needing second surgery. Further PT would be beneficial as well as work hardening to promote increased fx of L UE. He noted pain consistently at 8/10 pain for all tasks. Some discrepancies with pain rating at 8/10 while in chair but HR monitored t/o physical activities appeared to be consistent with increased pain as well as exertion but nonverbals and mechanical changes noted. Further explanation of performance can be see above and below. He has increased pain with all movement of L UE. Based on performance he has been placed in Light based physical activity. Due to increased pain and at times mechanical changes it would not be beneficial to complete lifting tasks or consistent repetitive movement tasks at this time as he is risk of reinjury. It is at this time further PT and work hardening at the completion of PT is recommended. Crepitus is noted with movements of LUE but is likely due to lack of use of L UE. ROM: B UE. Shoulder. flexion: R 0-120 degrees, L 5-63 degrees could have potentially gone further but noted increased symptoms of pain through thoracic spine. - increased signs of impingement of R shoulder. Can be treated through continued PT. ext: R 0-28, L -5-20 (30 degrees) some decreased from 40 degrees at last PT appointment. abduction: R 0-122, L 0-103. IR (elbow at 90): R 52, L 0-50 - completed elbow at 90 as increased symptoms of pain with movement. ER (elbow at 90): R 0-41, L 0-35 degrees. BLE is WFL, hip able to assume at least 100 degrees as able to sit in chair and lean forward as well as knees able to get to 90 degrees while sitting. Strength: Post MMT and ROM 02 101, HR nikki from 91 bpm to 113 BMP. This is believed to be from both exertion and pain as facial grimaces noted during tasks. BUE: Deltoid: R 3+/5, L 3+/5 consistently breaks muscle tension but can sustain position in against gravity plane. biceps: R 4-/ 5, L 3+/5. triceps: R 4-/ 5, L 3+/5. supraspinatus: R 4-/ 5, L 3+/5- very painful on L side per Pt. report. wrist flexion and extension: R 4+/5, L 4+/5. BLE. Hip flexors: R 4/5, L 4/5. hamstring: R 4/5, L 4/5. quadricep: R 4/5, L 4/5. plantar flexion: R 4/5, L 4/5. dorsiflexion: R 4/5, L 4/5 Right Ceramic Tile Installation Helper Strength Average: 77.00 Right Ceramic Tile Installation Helper Strength Percentile: 133 Left Ceramic Tile Installation Helper Strength Average: 36.00 Left Ceramic Tile Installation Helper Strength Percentile: 109 Right Lateral Pinch Average: 18.66 Right Lateral Pinch Percentile: 25 Left Lateral Pinch Average: 6.00 Left Lateral Pinch Percentile: below 10th Right Tripod Pinch Average: 14.33 Right Tripod Pinch Percentile: below 10th Left Tripod Pinch Average: 7.00 Left Tripod Pinch Percentile: below 10th Comments: Visible shaking on L UE when trying to complete dynamometer. Appeared to be putting good effort. Sensation: Completed sensation testing through monofilament test. Sensation intact and WFL. Notes increased sensation through shoulder area. Fine Motor: FMC intact. Completed 9 hole pegboard to measure FMC and dexterity tasks. Completed R 25.40 s (10th) L 28.02 s (10th). Noted movements caused increased sensation in back. Balance: Notes uses cane at times but no cane present for session. Mechanical compensations noted of increased trunk flexion and walking straight knees t/o walking task. Notes doctor was supposed to provide brace for R knee but has not been provided support brace. No brace on leg for session. Completed functional reach test with L arm against wall for AAROM he averaged 9-point score over three trials. Due to score under 10 this indicates greater fall risk. Completed fx reach as due to pain in LUE he exhibits increased risk of falling when reaching. Further balance testing maybe beneficial but was not able to be completed during session due to time constraints. - Non Material Handling Activities Bendinx, 8 with breaks due to LB pain, 10x. Fair body mechanics. Increased thoracic flexion, hyperext of B knees due to no bending of knee with movement and increased compensations. Increased breaks needed during second set with pain in low back. Mechanical changes noted but no change after starting task. HR nikki from 91 bpm at rest to HR 113 bpm, vitals WFL due to increased activity level compared to sitting. Not recommended to be completing consistently as increased pain and mechanical changes in body mechanics. Squattinx, 10x, needed standing breaks and increased SOB noted, 10x. 02 98, HR 127 BPM; Increase in HR from 113 to 127 this is indicative of both what appears to be increased exertion as well as related to pain. mechanical changes noted and poor body mechanics of narrow FAYE, use of external support of desk, and increased lateral leaning to L side to prevent increased pressure of R LE. Would not recommend completing consistently at this time. Further rehab and then work hardening program would be recommended. Pain rated at 8/10, but able to complete movement which pain more likely 6-7/10. Pain still significant but likely at 8/10 would not be able to complete movement at all. Kneeling: Pt. attempted but refused due to shoot of pain through knee and into back per Pt. report. Visible mechanical changes and inability to assume position. Not reccommended to be completing at this time. Pain rated at 8+/10 and pain rating appears to accurate at this time. Reaching out/up: Reaching out from standing position: 3x, 10x, 10 x faster need for quick break after 2 reaches on last round of 10 reps. Tasks for reaching out at about 80 degrees shoulder flexion rating more accurate at 6-7/10 based on ability to complete task, not in full ROM, but inability to complete without very limiting pain. Pt. reports 8/10. Would not recommend completing until further rehab is provided. Vitals: 02 98, HR 122 bpm. Increased HR appears to indicate pain. Reaching up from standing position: Short standing break prior to continuing. 3x, 10x, short break 8/10 pain per Pt. report, shoulder flexion about 100 on L UE during task. O2 98, HR 97 bpm. Heartrate manageable compared to previous task. Appears impingement syndrome of L shoulder is still limiting movements of L Ue. Unable to assume same positioning of L arm. Some increased facial expressions noted. Minimal mechanical changes. Needs further rehab before completing regularly for job-based purposes at this time. Walking: Completed 15 mins walk around facility. Required 1x less than 30 second standing break at 6 mins garth. Completed 6 laps in 15 mins. Each lap 340 feet completing approximately 2,040 feet total in walk with additional walking to get to and from main gym area. No cane, no a/d used. At start of walk vitals were HR 98, End of walk vitals were: 02 96, 108 bpm. Increased heartrate is believed to be both exertion as well as pain as antalgic gait noted at about lap 4 of task. Would not be appropriate to return to job requiring repetitive walking tasks but is able to complete short walks with breaks. Standing: Pt. completed 30 mins of standing both dynamic and static with short breaks and moving t/o session. Needed to make compensations as needed. Due to h/o of TKR and reports of buckling would not recommend consistent standing at this time due to risk of reinjury and safety concerns. He tolerated standing with compensations of weight shift as needed. Sitting: Completed 40-45 mins. Could have sat longer. Lateral leaning to R side. Weight shifts as needed to manage pain. Climbing Stairs: Completed climbing of 10 stairs L foot up, R down and use of 1x handrail. 1x LOb with decent with ability to self correct and support of handrail. Climbs 21 steps to apartment, no elevator in building.WFL, noted R knee does bukle but did not buckle during today's evaluation. - Dynamic Occasional Lifting Capacity Floor Lift: 20 lbs. Completed floor lift with poor body mechanics. Pt. perceived 8/10 pain, consistent t/o session. Completed narrow FAYE, flexed thoracic flexion, cervical extension, and lifting with straight arms with cues to bend elbows. Performance classifies in light category of work. Due to mechanical changes and mechanics would no recommend completing lifting related tasks at this time. Further PT recommended and then further work hardening program recommended. Knee Lift: 20 lbs. Completed knee lift with poor body mechanics. Completed narrow FYAE, flexed thoracic flexion, cervical extension, and lifting with straight arms with cues to bend elbows. Completed floor lift with poor body mechanics. Pt. perceived 8/10 pain, consistent t/o session, but able to complete task with more accurate rating being 6-7/10. Completed narrow FAYE, flexed thoracic flexion, cervical extension, and lifting with straight arms with cues to bend elbows. Performance classifies in light category of work. Due to mechanical changes and mechanics would not recommend completing lifting related tasks at this time. Further PT recommended and then further work hardening program recommended. Waist Lift: 20 lbs. Completed waist lift with decreased body mechanics. Increased grimace noted and SOB. Perceived pain at 8/10. Completed 02 78, HR 144 bpm. Increased HR indicated increased exertion as well as pain. Performance classifies in light category of work. Due to mechanical changes and poor body mechanics would not recommend completing lifting related tasks at this time. Further PT recommended and then further work hardening program would be beneficial. Shoulder Lift: 20 lbs. Completed with fair body mechanics. Completed increased thoracic extension cervical flexion with decreased spinal alignment. Increased mechanical changes noted as well as SOB and grimace noted. Pain per Pt. rating at 04/07. Performance classifies in light category of work. Due to mechanical changes and mechanics would not recommend completing lifting related tasks at this time. Further PT recommended and then further work hardening program recommended. Overhead Lift: 20 lbs. Mechanical changes of holding breath, compensations of decreased spinal alignment, and perceived pain at 04/07. 02 95 HR 96. Pain appears tolerable during task or would have been discontinued. Performance classifies in light category of work. Due to mechanical changes and mechanics would no recommend completing lifting related tasks at this time. Further PT recommended and then further work hardening program recommended. He appears to be able to tolerate overhead lifting better than forward based tasks. May be indicative of further impingement type of syndrome. Multiple surgeries noted by patient. Therapist unable to see post-operative reports. Further PT needed to promote pain management and increased fx use of L UE. With further therapy he is likely to have increased fx of arm. Impingement syndrome is manageable through conservative treatment. Carryin lbs. Significant mechanical changes. Unsafe to complete task. Poor body mechanics of straight arm, elevated shoulders, one handed technique of primarily using R UE only, and increased ROM. O2 94, HR 112 bpm. Would not recommend completing performance at light work as unsafe and increased compensations noted. 20 lbs. Further Pt needed to help manage impingement/shoulder pain. It is believed that due to extensive history of shoulder related injury and surgeries he would need continue PT and eventually work hardening. No job description provided. Unclear of weight related lifting requirements. Comments: Adrien completed The Oswestry Disability Index (Back) reporting 22/50= 44% disability, The Oswestry Disability (Neck) 27/50= 54%, DASH score of 82. Perceived pain t/o session at 04/07. Due to ability to complete tasks, but limiting pain noted, it would be more feasible pain at 6-03/07. This is still significant pain and needs addressed with further PT and potentially work hardening program with the potential of follow up of vocational rehab as previously Pt. noted he partially complete as he needed additional surgery. 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 Further clarification of CDL status as well as [id number] requirement for job would be needed. 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
== END 2018-04-11 19:00 | disposition home or self-care (01) ==
LOC: OT 07:27
DX: S43.432D Superior glenoid labrum lesion of left shoulder, subsequent encounter (principal); M75.22 Bicipital tendinitis, left shoulder; M17.11 Unilateral primary osteoarthritis, right knee
CPT/HCPCS: 97750